=== PATIENT | female | born 1995 | race Caucasian/White ===

== ENCOUNTER 2016-06-09 20:12 | Emergency (ER) ==
[2016-06-09 20:24] VITALS: BP 117/67; TEMP 98.3; BMI 20.7
--- NOTE | 2016-06-09 21:10 | ED.PDOC ---
General ED Provider: Dr. DREA PLUMMER Chief Complaint: Foot Pain/Injury Stated Complaint: Patient is a 20 year old female who comes to the ER with left ankle / foot pain That started yesterday while she was running. Rested today but got worse after work. Denies Twisting it while running. Thinks she was running on uneven surface. Time Seen by Physician: 20:45 Mode of Arrival: Walk-In Information Source: Patient Exam Limitations: No limitations Primary Care Provider: KIKI DAVIS Nursing and Triage Documentation Reviewed and Agree: Yes Musculoskeletal Complaint Exam - Ankle/Foot Complaint/Exam Location of Injury: Reports: Left, Ankle, Foot Mechanism of Injury: Reports: Trauma (running) Onset/Duration: 1 day Symptoms Are: Reports: Still present Onset of Pain: Reports: Immediate Initial Severity: Mild Current Severity: Moderate Location: Reports: Diffuse Character: Reports: Aching Alleviating: Reports: Rest Aggravating: Reports: Movement, Weight bearing, Prolonged standing Able to Bear Weight: Yes Associated Signs and Symptoms: Reports: Swelling. Denies: Redness, Bruising, Fever, Weakness, Numbness Related History: Denies: Similar episode Gout Risk Factors: Reports: None Lower Extremity Findings: Present: Swelling Achilles Tendon Abnormality: No Tenderness: Present: Lateral malleolus, Midfoot Limited Range of Motion: Absent: Inversion, Eversion, Dorsiflexion, Plantarflexion Differential Diagnosis: Sprain, Strain Review of Systems - Review Of Systems Constitutional: Reports: No symptoms Eyes: Reports: No symptoms Ears, Nose, Mouth, Throat: Reports: No symptoms Respiratory: Reports: No symptoms Cardiac: Reports: No symptoms GI: Reports: No symptoms : Reports: No symptoms Musculoskeletal: Reports: Joint pain, Joint swelling, Muscle pain Skin: Reports: No symptoms Neurological: Reports: No symptoms Endocrine: Reports: No symptoms Hematologic/Lymphatic: Reports: No symptoms All Other Systems: Reviewed and Negative Past Medical History - Past Medical History Endocrine: Reports: None Cardiovascular: Reports: None Respiratory: Reports: None Hematological: Reports: None Gastrointestinal: Reports: Gallstones Genitourinary: Reports: None Neuro/Psych: Reports: None Musculoskeletal: Reports: None Cancer: Reports: None Last Menstrual Period: PRESENTLY - Surgical History General Surgical History: Reports: Cholecystectomy - Family History Family History: Reports: None - Social History Smoking Status: Never smoker Hx Substance Use: No Alcohol Screening: None - Immunizations Tetanus Shot up to Date: Yes Physical Exam - Physical Exam Appearance: Well-appearing Pain Distress: Mild Respiratory: Airway patent, Breath sounds clear, Breath sounds equal, Respirations nonlabored Cardiovascular: RRR, Pulses normal, No rub, No murmur Musculoskeletal: ROM intact, Edema (minimal ) Skin: Warm, Dry, Normal color Neurological: Sensation intact, Motor intact, Reflexes intact, Cranial nerves intact, Alert, Oriented Psychiatric: Affect appropriate, Mood appropriate Interpretation - Radiology Interpretation Radiology Interpretation By: ED Physician Radiology Results: Negative Exam Interpreted: Other (Left foot and ankle. ) Critical Care Note - Critical Care Note Total Time (mins): 0 Course - Course Orders, Labs, Meds: Orders Category Date Time Status Splint [ED SPLINT APPLICATION] .ONCE EMERGENCY 06/09/16 22:24 Active Acetaminophen [Tylenol] MEDS 06/09/16 21:20 Discontinued 1,000 mg PO ONCE STA ANKLE, LEFT MIN 3 VIEWS Stat RADS 06/09/16 21:00 Taken FOOT, LEFT 3 VIEWS Stat RADS 06/09/16 20:33 Taken Medications Discontinued Medications Generic Name Dose Route Start Last Admin Trade Name Freq PRN Reason Stop Dose Admin Acetaminophen 1,000 mg 06/09/16 21:20 06/09/16 21:38 Tylenol PO 06/09/16 21:21 1,000 mg ONCE STA Administration Vital Signs: Temp Pulse Resp BP Pulse Ox 06/09/16 20:13 98.3 F 75 18 117/67 99 Departure - Departure Time of Disposition: 21:48 Disposition: HOME SELF-CARE Discharge Problem: Injury of foot, Foot sprain Instructions: Foot Sprain (ED) Condition: Good Pt referred to PMD for follow-up: Yes Additional Instructions: Rest, Ice Keep elevated when possible No running for one week Continue taking Over the counter Pain medication as needed for pain Follow up with PCP in 7 day Allergies/Adverse Reactions: Allergies No Known Drug Allergies Adverse Reaction (Verified 06/09/16 20:22) Home Medications: Ambulatory Orders Ibuprofen 400 mg PO Q4H PRN 06/09/16 Metformin HCl 1,000 mg PO DAILY 06/09/16 Norgestimate-Ethinyl Estradiol [Sprintec 28 Day Tablet] 1 each PO DAILY Disposition Discussed With: Patient, Family
[2016-06-09] MEDS ORDERED: TYLENOL PO STA (21:20)
--- NOTE | 2016-06-09 23:59 | DI ---
Exam: Left foot three-view HISTORY: Foot swelling Findings / impression: No bony or articular abnormality. Negative exam.
--- NOTE | 2016-06-10 00:06 | DI ---
Exam: Left ankle 3 views History: Injury and pain Findings/Impression: No significant abdifatah or articular abnormality. Negative exam.
== END 2016-06-09 22:20 | disposition home or self-care (01) ==
LOC: ED 20:12
DX: S93.602A Unspecified sprain of left foot, initial encounter (principal); Y93.02 Activity, running
CPT/HCPCS: 99282

== ENCOUNTER 2018-09-30 09:13 | Outpatient (CLI) | END 2018-09-30 09:14 | disposition home or self-care (01) | LOC: LAB 09:13 | PROVIDERS: ATTEND Nurse Anesthetist, Certified Registered | DX: Z01.812 Encounter for preprocedural laboratory examination (principal) | CPT/HCPCS: 36415; 85025 ==